=== PATIENT | male | born 1955 | race Caucasian/White ===

== ENCOUNTER 2017-08-30 13:30 | Emergency (ER) | payer OTHER ==
[2017-08-30 13:49] VITALS: BMI 32.5
--- NOTE | 2017-08-30 14:01 | DR.GENAD ---
HPI - PCP Primary Care Physician: NFD - HPI Comment HPI Comment: PAIN BACK OF HEAD AND BLEEDING FROM THRAT AREA, TD NOT UTD. PATIENT DECLINE TO UPDATE TODAY. - Complaint/Symptoms Chief Complaint Doctors Comments: FELL OFF BACK OF GOLF CART AND HIT BACK OF HIS HEAD. NO LOC. Chief Complaint:: FELL OFF GOLF CART AND HIT HEAD - Nurses notes reviewed Nurses Notes Review: Yes - Source History Provided: Patient - Mode of Arrival Mode of Arrival: Stretcher - Timing Onset of Chief Complaint: 08/30/17 Came on: Suddenly - Duration Duration: Constant Duration: Hours - Severity Severity: Moderate PMH - PMH Past Medical History: No Past Surgical History: No - Family History History of Family Medical Conditions: No - infectious screening In the last 2 months have you had wt loss of >10#?: NO Have you had fever, night sweats or hemotysis?: No Have you traveled outside the country in the last 6 months?: No Isolation: Standard ROS - Review of Systems Constitutional: No Symptoms Reported Eyes: No Symptoms Reported ENTM: No Symptoms Reported Respiratoy: No Symptoms Reported Cardiovascular: No Symptoms Reported Gastrointestinal/Abdominal: No Symptoms Reported Genitourinary: No Symptoms Reported Neurological: No Symptoms Reported Musculoskeletal: Other (PAIN BACK HEAD.) Integumentary: No Symptoms Reported Hematologic/Lymphatic: No Symptoms Reported Endocrine: No Symptoms Reported All Other Systems: Reviewed and Negative PE - Vital Signs Vitals: Temperature 98.1 F Pulse Rate 73 Respiratory Rate 18 Blood Pressure [Left Arm] 195/102 Blood Pressure 194/101 O2 Sat by Pulse Oximetry 97 - General Limitations: No Limitations General Appearance: Alert - Head Head Exam: Normal Inspection - Eyes Eye exam: Normal Appearance - ENT ENT Exam: Normal External Ear Exam External Ear Exam: Normal External Inspection TM/Canal Exam: Bilateral Normal Mouth Exam: Normal Inspection Throat Exam: Normal Inspection - Neck Neck Exam: Trachea Midline - Chest Chest Inspection: Symmetric Chest Wall Rise - Respiratory Respiratory Exam: Normal Lung Sounds Bilat Respiratory Exam: Bilateral Clear to Auscultation - Cardiovascular Cardiovascular Exam: Regular Rate, Normal Rhythm, Normal Heart Sounds - Abdominal Exam Abdominal Exam: Normal Bowel Sounds, Soft. negative: Tenderness - Extremities Extremities Exam: Normal Inspection, Full ROM - Back Back Exam: Normal Inspection - Neurologic Neurological Exam: CN II-XII Intact - Psychiatric Psychiatric Exam: Normal Affect - Skin Skin Exam: Normal Color MDM - Differential Diagnosis Differential Diagnosis: CONTUSION SCALP, FRACTURE SCALP, NECK FRACTURE AND SPRAIN. Course - Treatment Treatment: SEE ORDERS. ABRASION BACK SCALP NOTED. NO LACERATION. - Education/Counseling Education/Counseling: Patient, Education Educated On: Treatment, Diagnosis, Needs for Follow Up ROR - Labs Reviewed Laboratory Results Reviewed?: Yes Result Diagrams: 08/30/17 15:00 08/30/17 15:00 Laboratory: WBC 15.9 X10^3/uL (3.6-10.0) H 08/30/17 15:00 RBC 5.81 X10^6/uL (4.7-6.0) 08/30/17 15:00 Hgb 17.5 g/dL (13.5-18.0) 08/30/17 15:00 Hct 51.2 % (42.0-54.0) 08/30/17 15:00 MCV 88.2 fL (80.0-100.0) 08/30/17 15:00 MCH 30.1 pg (27.0-34.0) 08/30/17 15:00 MCHC 34.1 g/dL (33.0-35.0) 08/30/17 15:00 RDW 14.5 % (11.6-16.5) 08/30/17 15:00 Plt Count 258 X10^3/uL (150.0-450.0) 08/30/17 15:00 MPV 8.0 fL (7.4-11.0) 08/30/17 15:00 Neut % 74.5 % (42.0-75.0) 08/30/17 15:00 Lymph % 15.4 % (21.0-51.0) L 08/30/17 15:00 [place] % 7.4 % (0.0-13.0) 08/30/17 15:00 Eos % 2.0 % (0.9-2.9) 08/30/17 15:00 Baso % 0.7 % (0.2-1.0) 08/30/17 15:00 Neut # 11.9 x10^3/uL (2.2-4.8) H 08/30/17 15:00 Lymph # 2.5 X10^3/uL (1.3-2.9) 08/30/17 15:00 [place] # 1.2 x10^3/uL (0.3-0.8) H 08/30/17 15:00 Eos # 0.3 x10^3/uL (0.0-0.2) H 08/30/17 15:00 Baso # 0.1 X10^3/uL (0.0-0.1) 08/30/17 15:00 Absolute Nucleated RBC 0.1 /100WBC 08/30/17 15:00 Sodium 141 mmol/L (136-145) 08/30/17 15:00 Corrected Sodium TNP 08/30/17 15:00 Potassium 4.2 mmol/L (3.5-5.1) 08/30/17 15:00 Chloride 105 mmol/L (98-107) 08/30/17 15:00 Carbon Dioxide 25.2 mmol/L (21-32) 08/30/17 15:00 BUN 12 mg/dL (7-18) 08/30/17 15:00 Creatinine 1.29 mg/dL (0.70-1.30) 08/30/17 15:00 Est GFR (MDRD) Af Amer > 60 (>60) 08/30/17 15:00 Est GFR (MDRD) Non-Af > 60 (>60) 08/30/17 15:00 Glucose 95 mg/dL (65-99) 08/30/17 15:00 Calcium 9.4 mg/dL (8.5-10.1) 08/30/17 15:00 Corrected Calcium TNP 08/30/17 15:00 Total Bilirubin 0.30 mg/dL (0.2-1.0) 08/30/17 15:00 AST 25 Units/L (15-37) 08/30/17 15:00 ALT 35 Units/L (12-78) 08/30/17 15:00 Alkaline Phosphatase 97 Units/L (46-116) 08/30/17 15:00 Creatine Kinase 106 Units/L (39-308) 08/30/17 15:00 CK-MB (CK-2) < 1.0 ng/mL (0-4.0) 08/30/17 15:00 CK/CKMB % Calc 0.9 % (<4) 08/30/17 15:00 Troponin I < 0.02 ng/mL (0-1.5) 08/30/17 15:00 Total Protein 7.8 g/dL (6.4-8.2) 08/30/17 15:00 Albumin 4.1 g/dL (3.4-5.0) 08/30/17 15:00 Globulin 3.7 g/dL (2.5-4.5) 08/30/17 15:00 Albumin/Globulin Ratio 1.1 Ratio (1.1-2.1) 08/30/17 15:00 Specimen Type Clean catch urine 08/30/17 15:57 Urine Color Yellow (YELLOW) 08/30/17 15:57 Urine Appearance Clear (CLEAR) 08/30/17 15:57 Urine pH 6.0 (5.0 - 8.0) 08/30/17 15:57 Ur Specific [place] 1.015 (1.000-1.030) 08/30/17 15:57 Urine Protein 1+ (NEGATIVE) 08/30/17 15:57 Urine Glucose (UA) Negative (NEGATIVE) 08/30/17 15:57 Urine Ketones Negative (NEGATIVE) 08/30/17 15:57 Urine Occult Blood 2+ (NEGATIVE) 08/30/17 15:57 Urine Nitrite Negative (NEGATIVE) 08/30/17 15:57 Urine Bilirubin Negative (NEGATIVE) 08/30/17 15:57 Urine Urobilinogen Normal (NORMAL) 08/30/17 15:57 Ur Leukocyte Esterase 1+ (NEGATIVE) 08/30/17 15:57 Urine RBC Rare /HPF (NEGATIVE) 08/30/17 15:57 Urine WBC Rare /HPF (NEGATIVE) 08/30/17 15:57 Ur Squamous Epith Cells Rare /HPF (NEGATIVE) 08/30/17 15:57 Amorphous Sediment Trace /HPF (NEGATIVE) 08/30/17 15:57 Urine Bacteria Negative /HPF (NEGATIVE) 08/30/17 15:57 Ur Culture Indicated? No/not indicated 08/30/17 15:57 - XRAY XRAY Interpreted by: Radiologist XRAY Findings: REPORT DISCUSS WITH PATIENT. - Diagnosis Discharge Problem: Skull fracture Qualifiers: Encounter type: initial encounter Skull bone/location: unspecified skull bone Head trauma Qualifiers: Encounter type: initial encounter Qualified Code(s): S09.90XA - Unspecified injury of head, initial encounter Scalp abrasion Qualifiers: Encounter type: initial encounter Qualified Code(s): S00.01XA - Abrasion of scalp, initial encounter Syncope Qualifiers: Syncope type: unspecified Qualified Code(s): R55 - Syncope and collapse - Discharge Plan Disposition: 07 AGAINST MEDICAL ADVICE Condition: Stable Prescriptions: Ibuprofen [MOTRIN TAB 800 MG *] 800 mg PO Q8H PRN #30 tab PRN Reason: Pain/Inflammation - Follow ups/Referrals Follow ups/Referrals: Mary MEDRANO [Primary Care Provider] - 08/31/17 IDA GLOVER [STAFF PHYSICIAN] - 08/31/17 - Instructions Instructions: Head Injury, Adult, [id number], Syncope, [id number], Skull Fracture, Adult Additional Instructions: RETURN TO ED IF WORSE.
--- NOTE | 2017-08-30 14:53 | RAD ---
Examination: Portable AP chest History: Fell Comparison reference: None Findings: Transverse heart diameter is borderline enlarged. The lungs are hypo inflated. Increased pu lmonary vascularity may be related to low pulmonary volumes. There is no consolidation, pneumothorax or large pleural effusion. Impression: Essentially normal expiratory portable AP chest. Reported By:
--- NOTE | 2017-08-30 14:58 | CT ---
HISTORY: Fall. Hit back of head. Study: CT brain without contrast. Comparison: None. Technique: Multiple axial images of the brain were obtained from the skull base to the vertex without administra tion of IV contrast. Findings: There is extracranial soft tissue swelling/hematoma overlying the posterior parietal region without r adiopaque foreign body. There is a questionable nondisplaced fracture of the posterior parietal bones versus nutrient foramen on image 28 of series 7. No acute intraparenchymal hemorrhage or mass can be identified. No extra-axial fluid collections are seen. No alteration in the attenuation of the bra in parenchyma can be identified to suggest acute or subacute ischemic change. The ventricular system is symmetric and nondilated. IMPRESSION: No acute intracranial process can be identified. Extracranial soft tissue swelling/hematoma overlying the posterior parietal region with questionable nondisplaced fracture versus nutrient foramen of the posterior parietal bones as above. Reported By:
[2017-08-30 15:13] LABS: BASOPHILS # (AUTO) 0.1 X10^3/uL (0.0-0.1); BASOPHILS % (AUTO) 0.7 % (0.2-1.0); EOSINOPHILS # (AUTO) 0.3 x10^3/uL (0.0-0.2); HEMATOCRIT 51.2 % (42.0-54.0); HEMOGLOBIN 17.5 g/dL (13.5-18.0); LYMPHOCYTES # (AUTO) 2.5 X10^3/uL (1.3-2.9); LYMPHOCYTES % (AUTO) 15.4 % (21.0-51.0); MEAN CORPUSCULAR HEMOGLOBIN 30.1 pg (27.0-34.0); MEAN CORPUSCULAR HGB CONC 34.1 g/dL (33.0-35.0); MEAN CORPUSCULAR VOLUME 88.2 fL (80.0-100.0); MONOCYTES # (AUTO) 1.2 x10^3/uL (0.3-0.8); MONOCYTES % (AUTO) 7.4 % (0.0-13.0); NEUTROPHILS # (AUTO) 11.9 x10^3/uL (2.2-4.8); NEUTROPHILS % (AUTO) 74.5 % (42.0-75.0); PLATELET COUNT 258 X10^3/uL (150.0-450.0); RED BLOOD COUNT 5.81 X10^6/uL (4.7-6.0); RED CELL DISTRIBUTION WIDTH 14.5 % (11.6-16.5); WHITE BLOOD COUNT 15.9 X10^3/uL (3.6-10.0)
--- NOTE | 2017-08-30 15:23 | CT ---
HISTORY: Fall. Hit back of head. Study: CT cervical spine without contrast. Comparison: None. Technique: Multiple axial images of the cervical spine were obtained from the skull base to the thora cic inlet without administration of IV contrast. Sagittal and coronal reformats were performed and r eviewed. Findings: Alignment of the cervical spine is maintained. There is multilevel degenerative disc diseas e of the cervical spine most notable at C5-C6, C6-C7 and C7-T1 where there is disc space narrowing, e ndplate sclerosis, posterior disc osteophyte complexes and marginal osteophyte formations including b ilateral uncovertebral osteophytes which result in bilateral neural foraminal narrowing. Similar find ings although to a lesser extent are noted at C3-C4 and C4-C5. No evidence for acute cortical disrupt ion or subluxation can be seen. The central canal remains free of compromise from acute bony fragmen ts. There is severe facet joint arthropathy at C4-C5 on the left. No jumped or locked facets are anna dent. The posterior elements are grossly intact. The prevertebral soft tissues are normal in their ap pearance. In addition, the surrounding paraspinous soft tissues are unremarkable. There are severe e mphysematous changes of both lung apices. IMPRESSION: No evidence for acute bony injury of the cervical spine. Moderate to severe degenerative changes of the cervical spine as above. Severe emphysematous changes of both lung apices. Reported By:
[2017-08-30 15:34] LABS: BLOOD UREA NITROGEN 12 mg/dL (7-18); CARBON DIOXIDE 25.2 mmol/L (21-32); CHLORIDE 105 mmol/L (98-107); CREATININE 1.29 mg/dL (0.70-1.30); SODIUM 141 mmol/L (136-145); TROPONIN I < 0.02 ng/mL (0-1.5); eGFR BLACK RACES > 60 (>60); eGFR NON BLACK RACES > 60 (>60)
[2017-08-30 15:36] LABS: ALANINE AMINOTRANSFERASE 35 Units/L (12-78); ALBUMIN 4.1 g/dL (3.4-5.0); ALKALINE PHOSPHATASE 97 Units/L (46-116); ASPARTATE AMINO TRANSFERASE 25 Units/L (15-37); CKMB % 0.9 % (<4); CREATINE KINASE 106 Units/L (39-308); CREATINE KINASE MB < 1.0 ng/mL (0-4.0); TOTAL PROTEIN 7.8 g/dL (6.4-8.2)
[2017-08-30 15:40] LABS: CALCIUM 9.4 mg/dL (8.5-10.1)
[2017-08-30 16:09] LABS: BILIRUBIN,URINE NEGATIVE (NEGATIVE); BLOOD/HEMOGLOBIN,URINE 2+ (NEGATIVE); GLUCOSE, URINE NEGATIVE (NEGATIVE); KETONES,URINE NEGATIVE (NEGATIVE); LEUKOCYTE ESTERASE ,URINE 1+ (NEGATIVE); NITRITES,URINE NEGATIVE (NEGATIVE); PROTEIN,URINE 1+ (NEGATIVE); UROBILINOGEN,URINE NORMAL (NORMAL)
[2017-08-30 16:15] VITALS: BP 195/102
[2017-08-30] MEDS ORDERED: CATAPRES TAB 0.1 MG PO ONE (16:16)
[2017-08-30] MEDS ORDERED: CATAPRES TAB 0.1 MG ONE (16:17)
[2017-08-30 16:24] LABS: APPEARANCE,URINE CLEAR (CLEAR); COLOR,URINE YELLOW (YELLOW)
[2017-08-30 18:42] LABS: BACTERIA,URINE NEGATIVE /HPF (NEGATIVE); RBC,URINE RARE /HPF (NEGATIVE); SQUAMOUS EPITHELIAL CELL,UR RARE /HPF (NEGATIVE)
[2017-08-30 18:43] LABS: AMORPHOUS SEDIMENT,UR TRACE /HPF (NEGATIVE)
== END 2017-08-30 17:15 | disposition left against medical advice (07) ==
LOC: ER 15:01
DX: S02.91XA Unspecified fracture of skull, initial encounter for closed fracture (principal); S09.90XA Unspecified injury of head, initial encounter; S00.01XA Abrasion of scalp, initial encounter; R55 Syncope and collapse; J43.9 Emphysema, unspecified; W19.XXXA Unspecified fall, initial encounter; Y92.9 Unspecified place or not applicable
CPT/HCPCS: 36415; 70450; 71010; 72125; 80053; 81001; 82550; 82553; 84484; 85025; 93005; 93010; 99283